=== PATIENT | female | born 1980 | race Caucasian/White ===

== ENCOUNTER 2017-05-03 05:57 | Day surgery (SDC) | payer OTHER ==
--- NOTE | 2017-05-02 16:13 | PCM.HPANE ---
Patient Data Surgeon Admitting Provider: Attending Provider:Kareem Robles MD Primary Care Physician:Alina Other Provider:Ciara Meeksingham Anesthesia Reason for Visit Bilateral Breast Macromastia,Back Pain,Folliculiti Ht/WT & BMI Height (Feet): 5 Height (Inches): 6 Weight (Kilograms): 94.8 Body Mass Index 33.00 Allergies Coded Allergies: No Known Allergies (Unverified , 04/25/17) Past Anesthesia History Anesthesia History: Denies:: Abnormal Airway, Anesthesia Reactions, Difficult Intubation, Fam Anesthesia Reaction, Fam Malignant Hypertherm, Malignant Hyperthermia Diabetes History Hx Diabetes?: No MRSA MRSA: No Medications Hypertension Medication: No Home Meds Incl Beta Robbie: No Reported Medications Tramadol 50 Mg [id number] Mg PO Q6H PRN For Pain Ref 0 04/25/17 Ranitidine 150 Mg [id number] Mg PO BID Ref 0 04/25/17 Gabapentin 300 Mg [id number] Mg PO 4-6xdaily Ref 0 04/25/17 History History of ENT Problems?: No HEENT History: Denies:: Abnormal Airway Cataracts Difficult Intubation Dysphagia Glaucoma Hearing Problem Sinus Problem TMJ Denture Type: None Teeth Condition: Within Normal Limits Hx of Heart Problems?: No Cardiovascular History: Denies:: AICD Abdominal Aortic Aneurism Atrial Fibrillation Chest Pain Congestive Heart Failure Coronary Artery Disease Edema Heart Murmur Hypertension Irregular Heartbeat Pacemaker Peripheral Vascular Rheumatic Fever Thrombophlebitis Valvular Heart Disease Hx of Respiratory Problem?: No Respiratory History: Denies:: Asthma COPD Emphysema Oxygen Administration Pneumonia Tuberculosis Use of C-PAP Machine Use of Inhalers / NEBS Hx Neurologic Problems?: Yes Neurological History: Positive for:: Headaches (3-4 days week, from muscular weight on chest ) Denies:: CVA Multiple Sclerosis Parkinson's Disease Seizures TIA Hx of GI Problems?: Yes Hx of Problems?: No Genitourinary History: Denies:: Kidney Stones Urinary Tract Infection Female Hx: Positive for:: Problems with Breasts? (macromastia current admission problem) Denies:: Currently Skin History: Denies:: History Skin Disorders? Pressure Ulcers Hx Musculoskeletal Problems?: No Musculoskeletal History: Denies:: Back Injury Degenerative Joint Fibromyalgia (suspected, not confirmed ) Joint Replacement Musculoskeletal Trauma Myasthenia Gravis Osteoarthritis Rheumatoid Arthritis Hx of Psycho/Social Problems?: No Psycho Social History: Denies:: Anxiety Hx Depression Hx Surgeries?: Yes (oopherectomy 2009) Hx Any Other Health Problems?: Yes Other History: Denies:: Cancer Thyroid Disease History Blood Transfusions: Positive for:: Accept Blood Products? Denies:: Blood Transfusions Hx Diabetes: No Hx Alcohol Use: YesAlcoholic Drinks Per Day: one drink monthlyHx Substance Use : NoHave You Smoked inLast 12 mo: No Stop/Bang P-Blood Pressure: treated: No B- Body Mass Index > 35 kg/m2: No A- Age over 50: No N- Neck Large Circumference: No G- Gender Male: No Risk Assessment Category Category 1A: Patient has history of documented sleep apnea, and HAS NOT received any narcotic, sedative or anesthesia administration during this stay. Category 1B: Patient has history of documented sleep apnea, and HAS received any narcotic , sedative or anesthesia administration during this stay Category 2: Patient has SUSPECTED Obstructive Sleep Apnea, and HAS received any narcotic , sedative or anesthesia administration during this stay. Category 3: Patient has SUSPECTED Obstructive Sleep Apnea and HAS NOT received narcotic, sedative or anesthesia administration during this stay. Category 4: Outpatient in Procedural Areas with known sleep apnea or who screen positive for High Risk via the STOP/BANG questionnaire. Exam Exam General Appearance: Alert, Oriented X3, Cooperative, No Acute Distress HEENT/AIRWAY: MP 2, Neck Movement (tHICK, FROM), Mouth Opening (WNL) Lungs: Clear to Auscultation Heart: Exam Unremarkable Plan Impression Patient chart reviewed, patient interviewed and anesthestic plan with risks, benefits, and alternatives discussed, and informed consent obtained. ASA Physical Status: ASA2 Mod Systemic Disease Anesthetic Plan: GA Bene/Risks/Altern/Consents: Yes HP Complete Prior to Induction: Yes Emir Macias MD May 02, 2017 16:13
[~2017-05-03] VITALS: Ht 167.6 cm; Wt 95.7 kg
[2017-05-03] VITALS (9 sets, daily range): BP systolic 122–139; BP diastolic 73–117; PULSE 68–87; RESP 6–20; O2SAT 98–100
[~2017-05-03 05:57] MED LIST: GABA-502 PO; Lactated Ringer's 1,000 ML IV SCH; RANI150C4 PO; TRAM50TA2 PO
[2017-05-03] MEDS ORDERED: fentaNYL-PF 50 mCg/mL 2 mL Inj ONE (05:58)
[2017-05-03] MEDS ORDERED: Rocuronium 10 mg/mL 5 mL Inj ONE (05:58)
[2017-05-03] MEDS ORDERED: Ondansetron 2 mg/mL 2 mL Inj ONE (05:58)
[2017-05-03] MEDS ORDERED: Propofol 10,000 mCg/mL 20 mL Inj ONE (05:58)
[2017-05-03] MEDS ORDERED: HYDROmorphone 1 mg/mL Inj ONE (05:58)
[2017-05-03] MEDS ORDERED: Dexamethasone 4 mg/mL Inj ONE (05:58)
[2017-05-03] MEDS ORDERED: CeFAZolin 2 Gm/50 mL D5W IV Premix IV ONE (06:00)
[2017-05-03] MEDS ORDERED: Lactated Ringer's 1,000 ML IV ONE (06:46)
[2017-05-03] MEDS ORDERED: Lactated Ringer's 500 ML IV PRN (07:48)
[2017-05-03] MEDS ORDERED: Lactated Ringer's 1,000 ML IV SCH (07:48)
[2017-05-03] MEDS ORDERED: Acetaminophen IV 1,000 MG in IV Premix 1 EACH IV ONE (07:50)
[2017-05-03] MEDS ORDERED: Ondansetron 2 mg/mL 2 mL Inj IVPUSH PRN (07:50)
[2017-05-03] MEDS ORDERED: Dexamethasone 4 mg/mL Inj IVPUSH PRN (07:50)
[2017-05-03] MEDS ORDERED: Labetalol 5 mg/mL 4 mL Inj IV PRN (07:50)
[2017-05-03] MEDS ORDERED: Phenylephrine 10,000 mCg/mL Inj IVPUSH PRN (07:50)
[2017-05-03] MEDS ORDERED: hydrALAZINE 20 mg/mL Inj IVPUSH PRN (07:50)
[2017-05-03] MEDS ORDERED: Atropine 0.4 mg/mL Inj IVPUSH PRN (07:50)
[2017-05-03] MEDS ORDERED: HYDROmorphone 1 mg/mL Inj IVPUSH PRN (07:50)
[2017-05-03] MEDS ORDERED: EPHEDrine Sulfate 50 mg/mL Inj IVPUSH PRN (07:50)
[2017-05-03] MEDS ORDERED: fentaNYL-PF 50 mCg/mL 2 mL Inj IVPUSH PRN (07:50)
[2017-05-03] MEDS ORDERED: oxyCODONE-Acetamin 5-325 mg Tablet PO PRN (09:50)
--- NOTE | 2017-05-03 10:00 | PCM.ANEP1 ---
Post Anesthesia PACU Phase 1 Assessment Vital Signs Vital Signs Date Time Temp Pulse Resp B/P Pulse Ox O2 Delivery O2 Flow Rate FiO2 05/03/17 06:23 36.7 81 15 122/81 98 Room Air Anesthetic Administered: GA Level of Alertness: Awake, talking DEL CID's with Equal Strength: Yes Pain: Yes Nausea or Vomiting: No CV Function & Hydration Stable: Yes Airway Device: Lungs: Clear to Auscultation PACU Phase 2 Assessment Complications: No Follow up Care: No Patient Instructions Provided: N/A Emir Macias MD May 03, 2017 10:00
--- NOTE | 2017-05-04 09:40 | OP ---
[address] [address] OPERATIVE REPORT PATIENT: CAM GARCIA : 1980 MR#: [id number] ADMIT: 05/03/2017 JOB ID: [id number] DATE OF SURGERY: 05/03/2017 PREOPERATIVE DIAGNOSIS(ES): 1. Bilateral symptomatic macromastia. 2. Thoracic back pain. POSTOPERATIVE DIAGNOSIS(ES): 1. Bilateral symptomatic macromastia. 2. Thoracic back pain. PROCEDURE: Bilateral reduction mammoplasty. SURGEON: Kareem Robles MD ANIMAL SHELTER SUPERVISOR: Antonino Marshall PA-C and Dakota Mendoza PA-C who were present for necessary retraction, exposure, and closure. ANESTHESIA: General anesthesia. COMPLICATIONS: None apparent. ESTIMATED BLOOD LOSS: 40 cc. DRAINS: Bilateral #15 round Emre drain, one on each side. SPECIMEN: Bilateral breast tissue to Pathology right side 0.94 kg, left side 0.79 kg. INDICATIONS FOR PROCEDURE: This is a 37-year-old female patient with a long history of bilateral symptomatic macromastia with neck pain, back pain, shoulder bra strap grooving as well as inframammary rash. Her symptoms have been refractory to routine management and conservative measures. At this point, she has been approved for bilateral breast reduction and the procedure is indicated. PROCEDURE AND FINDING: The patient was identified in the preoperative area. Surgical site was marked. With patient in sitting position, I marked the patient's midline and sternal notch. Bilateral inframammary folds were marked. Zavala pattern incisions were then created with the new nipple position at 23 cm from the sternal notch. The Zavala pattern triangle was marked with 8 cm limbs. The patient was then transported to the operating room and placed supine on the operating table. Appropriate time-outs were taken. General anesthesia was induced. The patient did vomit, but anesthesia examined patient's airway and did not see any obvious aspiration. I then completed the Aguillon pattern marking. Patient was then prepped and draped in usual sterile manner. I first turned my attention to the right breast. The new nipple-areolar complex was marked with a 42 mm nipple sizer with the nipple under slight stretch. An inferior pedicle was designed and is 12 cm at its base. Incision was then made around the nipple-areolar complex with a #10 blade. Incision was then made around the inferior pedicle with a #10 blade. The intervening skin was de-epithelialized. Incisions were then made along the Zavala pattern marking with a #10 blade down into the subcutaneous tissue. I then turned my attention to elevating the superior skin flap. Medially the skin flap started at approximately 2 cm thick. I then increased the thickness to about 3 cm as I approached the chest wall. Laterally, the skin flap was elevated along the breast capsule down to the chest wall. I then turned my attention to the inferior pedicle. Incision around the inferior pedicle was then deepened down toward the chest wall while bevelling out to capture as many perforators as possible. Medially the incision was dissected down to the underlying pectoralis major fascia. Laterally, the incision was dissected down to the deep subcutaneous tissue and connected with the superior dissection. Around the nipple the incision was deepened down to the posterior breast capsule which was then followed down to the chest wall. The intervening tissue between the inferior pedicle and the skin flap was elevated off the chest wall and passed off to Pathology as a specimen. Hemostasis was obtained with electrocautery. The incisions were then temporarily stapled together. A new nipple-areolar complex keyhole was marked with a 42 mm nipple sizer centered at 7 cm from the inframammary fold. Incision was then made around the keyhole with a #15 blade. I then incised through the skin flap with electrocautery removing the keyhole and allowing the nipple to be externalized. I then turned my attention to the left breast. A similar breast reduction was then carried out. Again, incisions were made around the new nipple-areolar complex and inferior pedicle with the intervening skin de-epithelialized. Superior skin flap was elevated in a similar manner to the right side. Inferior pedicle was then defined again bevelling out to capture as many perforators possible. The intervening soft tissue between the inferior pedicle and the superior skin flap dissection was then elevated off the chest wall and passed off to Pathology as a specimen. The left breast incisions were then carefully stapled together. Incision was then made around the new nipple-areolar keyhole. As the left side continued to be slightly bigger, I removed more tissue through the keyhole excision. Once this has been done, the nipple was externalized. The sites were compared and were found to have similar size and contour. At this point, the right-sided breast tissue weighed 0.94 kg and left side 0.8 kg. A #15 round Emre drain was then placed into the surgical site exiting on the lateral end of the inframammary incisions. The drain stitches were then used to secure the drain. The incisions were then reapproximated first with a layer of 3-0 Monocryl deep dermal suture, followed by 4-0 Monocryl running subcuticular suture. The patient tolerated the procedure well. Needle count, sponge count, and instrument counts were correct at the end of the procedure. The patient was extubated and transported to recovery in stable condition.
--- NOTE | 2017-05-05 15:24 | PATH ---
SURGICAL PATHOLOGY Attending Physician:Kareem Robles CASE STATUS: Signed Out PATIENT NAME: CAM GARCIA PID: [id number] : 1980 DATE COLLECTED:05/03/2017 16:58 SPECIMEN: 1: Breast Reduction 2: Breast Reduction CLINICAL HISTORY: BILATERAL BREAST MACROMASTIA, BACK PAIN, FOLLICULI 1). RIGHT BREAST 2). LEFT BREAST TISSUE FINAL DIAGNOSIS: 1.RIGHT BREAST, REDUCTION (950 GRAMS): BENIGN BREAST TISSUE. NO EVIDENCE OF ATYPICAL HYPERPLASIA, IN SITU, OR INVASIVE CARCINOMA. 2.LEFT BREAST TISSUE, REDUCTION (810 GRAMS): BENIGN BREAST TISSUE. NO EVIDENCE OF ATYPICAL HYPERPLASIA, IN SITU, OR INVASIVE CARCINOMA. ICD10 N62 GROSS DESCRIPTION: The specimens are received in formalin, labeled patient's name, and sublabeled as the following: (1) right breast tissue; (2) left breast tissue. (1) The specimen consists of multiple pieces of breast tissue (950 g, 22.5 x 19.5 x 7.3 cm in aggregate) partially covered by skin (19.5 x 13.5 cm). The breast tissue is fatty with no nodules, masses or lesions identified. The skin is mora-white and unremarkable. Section code: (1A, 1B) breast tissue, volunteer patient representative. (2) The specimen consists of multiple pieces of breast tissue (810 g, 19.7 x 15.5 x 5.8 cm in aggregate) partially covered by skin (16.3 x 13.8 cm). The breast tissue is fatty with no nodules, masses or lesions identified. The skin is mora-white and unremarkable. Section code: (2A, 2B) breast tissue, volunteer patient representative. 05/04/17 MICRO DESCRIPTION: See diagnosis. ICD-9 CODES: CPT CODES: 1: 38521 2: 64367 Electronically Signed Out Jaimie Gorman MD [facility] [address], [place] [address] Technical component performed at [facility], [facility] [address], [place], [address]
== END 2017-05-03 23:59 | disposition home or self-care (01) ==
LOC: SAS 05:57
PROVIDERS: ATTEND Plastic Surgery
DX: N62 Hypertrophy of breast (principal); M54.6 Pain in thoracic spine; L73.9 Follicular disorder, unspecified
CPT/HCPCS: 19318; J0690; J1100; J1170; J2250; J2405; J2704; J3010; J7120